=== PATIENT | female | born 1960 | race Caucasian/White ===

== ENCOUNTER 2018-08-02 09:59 | Emergency (ER) | payer OTHER ==
[~2018-08-02] VITALS: Ht 165.1 cm; Wt 57.7 kg
[2018-08-02 10:10] VITALS: TEMP 98.6
[2018-08-02] MEDS ORDERED: ATIVAN 0.50.5 MG/TAB PO (11:40)
[2018-08-02 11:46] VITALS: BP 161/79; PULSE 67
== END 2018-08-02 11:47 | disposition home or self-care (01) ==
LOC: COL.ER 09:59
DX: S06.0X9A Concussion with loss of consciousness of unspecified duration, initial encounter (principal); F32.9 Major depressive disorder, single episode, unspecified; Z88.2 Allergy status to sulfonamides; V89.2XXA Person injured in unspecified motor-vehicle accident, traffic, initial encounter